=== PATIENT | male | born 1945 | race Caucasian/White ===

== ENCOUNTER → 2016-11-04 | Outpatient (CLI) | payer MEDICARE, BC ==
[~2016-11-04] MED LIST: GLIM2TAB3 PO; METF500T4 PO; NEBI20TA2 PO
== END ==
LOC: LAB 10:09
PROVIDERS: ATTEND Family Medicine
DX: R00.0 Tachycardia, unspecified (principal)
CPT/HCPCS: 93005

== ENCOUNTER → 2016-11-12 | Outpatient (CLI) | payer MEDICARE, BC ==
--- NOTE | 2016-11-12 10:19 | DI ---
INDICATION: ITS.REASON: R06.02 SHORTNESS OF BREATH PROCEDURE: CHEST 2-VIEWS UPRIGHT (PA \T\ LAT) Encounter: Initial COMPARISON: September 03, 2011 FINDINGS: Linear opacity in the lingula probably due to atelectasis. No focal consolidative pneumonia. There is no pleural effusion or pneumothorax. The heart size, mediastinal contours and pulmonary vascularity are within normal limits. There is no significant skeletal abnormality. IMPRESSION: Lingular atelectasis without definite pneumonia. .
== END ==
LOC: IMA 09:31
PROVIDERS: ATTEND Internal Medicine Cardiovascular Disease
DX: J98.11 Atelectasis (principal); R06.02 Shortness of breath